=== PATIENT | female | born 1990 | race Caucasian/White ===

== ENCOUNTER 2017-07-15 01:19 | Emergency (ER) | payer OTHER, SELFPAY ==
[2017-07-15 01:21] VITALS: BP 128/85; PULSE 83; RESP 18; O2SAT 98; BMI 34.9
[2017-07-15 01:25] VITALS: TEMP 36.8
--- NOTE | 2017-07-15 01:51 | ED.DCSUM_ITS ---
- ER Visit Summary Date of Service: 07/15/17 Chief Complaint: Dizziness History of Present Illness: The patient is a 26 F who presents with complaint of dizziness since yesterday morning. Patient describes it as being unable to keep herself upright. It is worse if she moves, such as standing or laying down. It is not fatigable if she lays still. If she still, she states her abdomen starts to hurt. She has had a similar episode in the past and was found to be . Patient denies fever, chest pain, dyspnea, urinary symptoms, vomiting or diarrhea. She has been nauseated all day. Denies any medical history. Patient uses tobacco and alcohol. Physical Examination: Vital signs: afebrile, hemodynamically stable, no hypoxia on room air General: well nourished, well developed, in no distress Skin: warm, dry, no rash, no pallor HEENT: normocephalic and atraumatic; PERRL, EOMI, mild horizontal nystagmus bilaterally with lateral gaze, moist mucous membranes Cardiovascular: regular rate and rhythm without murmurs, no peripheral edema, 2 + pulses all distal extremities Respiratory: No increased work of breathing, lungs are clear to auscultation bilaterally, no rales, rhonchi or wheezing Abdominal: Abdomen is soft, mildly tender with normoactive bowel sounds, no guarding or rebound, no masses MSK: Moves all extremities, no deformities, normal strength Neuro: Awake and alert, oriented ?4. No facial droop, sensation and motor function intact and symmetric Test Results: Abnormal Lab Results 07/15/17 07/15/17 07/15/17 02:10 02:10 02:10 WBC 10.3 RBC 4.79 Hgb 14.7 Hct 43.3 MCV 90.4 MCH 30.7 MCHC 33.9 RDW 13.0 RDW Differential 43.5 Plt Count 237 MPV 9.8 Immature Gran % (Auto) 0.200 Neut % (Auto) 80.4 H Lymph % (Auto) 9.0 L [place]unn[place] % (Auto) 8.6 Eos % (Auto) 1.7 Baso % (Auto) 0.1 Absolute Neuts (auto) 8.3 H Absolute Lymphs (auto) 0.93 Total Counted Not Reportable Sodium 138 Potassium 3.7 Chloride 106 Carbon Dioxide 27.0 Anion Gap 5 BUN 6 L Creatinine 0.78 Estim Creat Clear Calc 81.03 Est GFR (MDRD) Af Amer 112 Est GFR (MDRD) Non-Af 93 BUN/Creatinine Ratio 7.7 L Glucose 95 Calcium 8.2 L Total Bilirubin 0.40 AST 12 L ALT 25 Alkaline Phosphatase 89 Total Protein 7.3 Albumin 3.6 Globulin 3.7 Albumin/Globulin Ratio 1.0 Lipase 169 Serum , Qual Urine Color Urine Clarity Urine pH Ur Specific [place] Urine Protein Urine Glucose (UA) Urine Ketones Urine Occult Blood Urine Nitrite Urine Bilirubin Urine Urobilinogen Ur Leukocyte Esterase Urine RBC Urine WBC Ur Squamous Epith Cells Urine Bacteria Urine Mucus Urine Opiates Screen Urine Methadone Screen Ur Barbiturates Screen Ur Phencyclidine Scrn Ur Amphetamines Screen U Methamphetamin-MDMA U Benzodiazepines Scrn Urine Cocaine Screen U Cannabinoids Screen Ur Drug Screen Comment Ethyl Alcohol 6.0 07/15/17 07/15/17 07/15/17 02:10 02:52 02:52 WBC RBC Hgb Hct MCV MCH MCHC RDW RDW Differential Plt Count MPV Immature Gran % (Auto) Neut % (Auto) Lymph % (Auto) Runn[place] % (Auto) Eos % (Auto) Baso % (Auto) Absolute Neuts (auto) Absolute Lymphs (auto) Total Counted Sodium Potassium Chloride Carbon Dioxide Anion Gap BUN Creatinine Estim Creat Clear Calc Est GFR (MDRD) Af Amer Est GFR (MDRD) Non-Af BUN/Creatinine Ratio Glucose Calcium Total Bilirubin AST ALT Alkaline Phosphatase Total Protein Albumin Globulin Albumin/Globulin Ratio Lipase Serum , Qual NEGATIVE Urine Color Yellow Urine Clarity Clear Urine pH 6.5 Ur Specific [place] 1.010 Urine Protein Negative Urine Glucose (UA) Normal Urine Ketones Negative Urine Occult Blood 10 H Urine Nitrite Negative Urine Bilirubin Negative Urine Urobilinogen Normal Ur Leukocyte Esterase 25 H Urine RBC 0 SEEN Urine WBC 0-5 SEEN Ur Squamous Epith Cells 10-25 SEEN Urine Bacteria 0 SEEN Urine Mucus 0 SEEN Urine Opiates Screen NEGATIVE Urine Methadone Screen NEGATIVE Ur Barbiturates Screen NEGATIVE Ur Phencyclidine Scrn NEGATIVE Ur Amphetamines Screen NEGATIVE U Methamphetamin-MDMA NEGATIVE U Benzodiazepines Scrn NEGATIVE Urine Cocaine Screen NEGATIVE U Cannabinoids Screen NEGATIVE Ur Drug Screen Comment Ethyl Alcohol Emergency Department Course and Treatment: Patient was given IV hydration and Zofran for symptomatic relief. negative. Lab work unremarkable for contributing factors to patient's dizziness. Alcohol and urine tox were negative. Gigi maneuver was performed on the patient and she had great improvement in her vertigo afterwards. This makes patients symptoms most consistent with peripheral vertigo. Patient was given a prescription for meclizine in case of recurrence of the dizziness. Patient was discharged home in greatly improved condition. Treatment Plan: [] Disposition: [] Impression: Peripheral vertigo This note was generated with [employer] dictation software. It may contain incorrect words, spelling, and punctuation that were not noted in review of the chart prior to signing ED Disposition - Plan for ED Patient: Disposition: Home or Assisted Living Chief Complaint: Dizziness Instructions: ED BPV Vertigo, ED Vertigo Unspecified Prescriptions: Meclizine HCl 25 mg PO TID PRN PRN #20 tab PRN Reason: Dizziness Referrals: Silvio Isaacs MD [STAFF PHYSICIAN] - 3-5 Days if not improving Care Physician,No Primary [Primary Care Provider] - Additional Instructions: Please use the meclizine as needed for dizziness and nausea. Follow up with primary care doctor of your choice or the doctor on this paperwork if you continue to have issues with dizziness and vertigo. If you are having dizziness , do not drive a vehicle or do anything else that would put you or others in danger. If you have any worsening of your condition or any new concerning symptoms, please return immediately to the emergency department for another evaluation.
[2017-07-15] MEDS: 0.9% Normal Saline 1,000 ML 1000 ML IV (02:09)
[2017-07-15] MEDS: Ondansetron 4 MG/2 ML Vial IV (02:09)
[2017-07-15 02:17] LABS: Absolute Lymphocyte Count 0.93 X10^3/ul (0.83-4.51); Absolute Neutrophil Count 8.3 X10^3/uL (2.0-7.7); Basophil# 0.01 X10^3/uL; Basophil% 0.1 % (0-1); Eosinophil# 0.18 X10^3/uL; Eosinophils% 1.7 % (0-5); Hematocrit 43.3 % (37-47); Hemoglobin 14.7 g/dl (12.0-15.0); Lymphocyte # 0.93 X10^3/ul (4.0); Mean Corp Hgb Conc 33.9 g/gl (32-36); Mean Corpuscular Hgb 30.7 pg (27.0-32.0); Mean Corpuscular Volume 90.4 fL (81-99); Mean Platelet Vol. 9.8 fl (6.2-12.0); Monocyte# 0.89 X10^3/uL; Monocyte% 8.6 % (0-10); Neutrophil # 8.28 X10^3/uL (2.7-7.7); Neutrophil % 80.4 % (47-70); Platelet Count 237 K/mm3 (150-450); RBC Distribution Width SD 43.5 fl (35.1-43.9); Red Blood Count 4.79 M/mm3 (4.2-5.4); White Blood Count 10.3 K/mm3 (4.4-11.0)
[2017-07-15 02:19] LABS: POSITIVE COUNT NO; POSITIVE DIFFERENTIAL NO; POSITIVE MORPHOLOGY NO
[2017-07-15 02:32] LABS: AST(SGOT) 12 U/L (15-37); Alanine Aminotransfer ALT/SGPT 25 U/L (13-56); Albumin, Serum 3.6 g/dL (3.2-5.0); Alkaline Phosphatase 89 U/L (45-117); Anion Gap 5 (5-15); BUN 6 mg/dL (7-18); BUN/Creat Ratio 7.7 RATIO (10-20); Calcium,Total 8.2 mg/dL (8.5-10.1); Chloride 106 mmol/L (98-107); Creatinine, Serum 0.78 mg/dL (0.55-1.02); EST Glomerular Filtration Rate 93 mL/min (>60); Est Glom Filt Rate - Afr Amer 112 mL/min (>60); Estimated Creatinine Clearance 81.03 ml/min; Globulin 3.7 g/dL (2.2-4.2); Glucose 95 mg/dL (74-106); Lipase 169 U/L (73-393); Potassium 3.7 mmol/L (3.5-5.1); Protein, Total 7.3 g/dL (6.4-8.2); Sodium Level 138 mmol/L (136-145)
[2017-07-15 02:57] LABS: Bacteria 0 SEEN /hpf (None Seen); Mucous, Urine 0 SEEN /hpf (<or=2+); Red Blood Cells-Urine 0 SEEN /hpf (0-5)
[2017-07-15 02:59] LABS: Color, Urine Yellow (Yellow); Glucose, Dipstick Normal (Normal); Ketone-Dipstick Negative (Negative); Leukocyte Esterase-Dipstick 25 /ul (Negative); Nitrite-Dipstick Negative (Negative); Occult Blood-Urine 10 /ul (Negative); Protein-Dipstick Negative (Negative); Urine Bilirubin Dipstick Negative (Negative); Urine Clarity Clear (Clear); Urine Urobilinogen Normal (Normal); Urine pH 6.5 (5.0 - 8.0)
[2017-07-15 02:59] LABS: Pregnancy, Serum, hCG Quali. NEGATIVE Negative (0-9 Nonpreg)
[2017-07-15 03:00] LABS: Vista UDS pH Range 6
[2017-07-15 03:06] LABS: Squamous Epithelial Cells - UA 10-25 SEEN /hpf (5-10); White Blood Cells 0-5 SEEN /hpf (0-5)
[2017-07-15 03:11] LABS: Amphetamine Urine VISTA NEGATIVE (<1000 ng/mL); Barbiturate Urine VISTA NEGATIVE (< 200 ng/mL); Benzodiazepine Urine VISTA NEGATIVE (< 200 ng/mL); Cocaine Urine VISTA NEGATIVE (< 300 ng/mL); Ecstacy Urine VISTA NEGATIVE (< 500 ng/mL); Methadone Urine VISTA NEGATIVE (< 300 ng/mL); PCP Urine VISTA NEGATIVE (< 25 ng/mL); THC Urine VISTA NEGATIVE (< 50 ng/mL)
[2017-07-15 03:27] VITALS: BP 109/68; PULSE 68; RESP 20; O2SAT 99
--- NOTE | 2017-07-15 03:47 | DCINST.ED_ITS ---
ED Disposition - Plan for ED Patient: Disposition: Home or Assisted Living Chief Complaint: Dizziness Instructions: ED Vertigo Unspecified, ED BPV Vertigo Prescriptions: Meclizine HCl 25 mg PO TID PRN PRN #20 tab PRN Reason: Dizziness Referrals: Care Physician,No Primary [Primary Care Provider] - Silvio Isaacs MD [STAFF PHYSICIAN] - 3-5 Days if not improving Additional Instructions: Please use the meclizine as needed for dizziness and nausea. Follow up with primary care doctor of your choice or the doctor on this paperwork if you continue to have issues with dizziness and vertigo. If you are having dizziness , do not drive a vehicle or do anything else that would put you or others in danger. If you have any worsening of your condition or any new concerning symptoms, please return immediately to the emergency department for another evaluation.
[2017-07-15] MEDS: Meclizine HCl 25 MG Tablet PO (03:55)
[2017-07-15 03:57] VITALS: BP 124/86; PULSE 62; RESP 18; O2SAT 99
== END 2017-07-15 03:58 | disposition home or self-care (01) ==
PROVIDERS: Emergency Provider Emergency Medicine
DX: H81.399 Other peripheral vertigo, unspecified ear (principal); Z72.0 Tobacco use
CPT/HCPCS: 80053; 80307; 80320; 81001; 83690; 84703; 85025; 96361; 96374; 99284; J7030; G0480; J2405

== ENCOUNTER 2017-08-05 04:53 | Emergency (ER) | payer OTHER, SELFPAY ==
[2017-08-05 04:54] VITALS: BP 132/86; PULSE 83; RESP 16; TEMP 36.7; O2SAT 97; BMI 36.8
--- NOTE | 2017-08-05 05:24 | ED.DCSUM_ITS ---
- ER Visit Summary Date of Service: 08/05/17 Chief Complaint: [Dental pain and facial swelling] History of Present Illness: The patient is a 26 F [presents the emergency department with dental pain and facial swelling. She had her wisdom teeth all extracted on 5 days ago. She was doing well Thursday and Thursday but Thursday started having swelling and pain. She saw her dentist and was started on clindamycin Thursday. She states that it is getting more hard and she thinks it is going down her neck. No fevers or chills. No foul taste in her mouth. Swelling is only on along her right jaw] patient is taking Motrin Percocet and clindamycin. Physical Examination: [] Blood pressure 132/86 heart rate 83 respiratory rate 16 pulse ox 97% temperature 98.1 WN WD NAD PERRL EOMI MMM Patient has facial swelling at the angle of the right jawline that extends mildly into the neck. She has mild trismus. She is tolerating secretions and there is no sublingual edema. There is hyperemia involving the extraction site on the right mandibular wisdom tooth. There is some mild fluctuance with expression of a small amount of purulence NECK supple and nontender, no masses RRR no murmur rub or gallop, no peripheral edema, symmetric radial pulses CTAB no respiratory distress ABDOMEN is soft and nontender, normal bowel sounds, no distension, no rebound or guarding SKIN is warm and dry no rashes Alert and Oriented x3, CN II-XII in tact, no motor or sensory deficits, gait normal No lymphadenopathy Test Results: [] Emergency Department Course and Treatment: [Patient was given IV clindamycin and Flagyl. She was given Flagyl to take with her clindamycin at home. She was given precautions for which to return and advised to see her oral surgeon in 2 days.] Treatment Plan: [] Disposition: Discharge [] Impression: [Dental infection] This note was generated with [employer] dictation software. It may contain incorrect words, spelling, and punctuation that were not noted in review of the chart prior to signing ED Disposition - Plan for ED Patient: Chief Complaint: Dental Referrals: Care Physician,No Primary [Primary Care Provider] -
--- NOTE | 2017-08-05 05:24 | ED.DEP ---
ED Disposition - Plan for ED Patient: Chief Complaint: Dental Instructions: Dental Abscess Prescriptions: Metronidazole [Flagyl] 500 mg PO Q8H 7 Days tablet Referrals: [facility] [Other] - 2 Days for wound check
[2017-08-05] MEDS: metroNIDAZOLE 500 MG Tablet PO (05:26)
[2017-08-05] MEDS: Clindamycin 900 MG/50 ML BAG 75 MG IV (05:30)
[2017-08-05 07:11] VITALS: BP 97/58; PULSE 71; RESP 14; O2SAT 99
== END 2017-08-05 07:12 | disposition home or self-care (01) ==
PROVIDERS: Emergency Provider Emergency Medicine
DX: K04.7 Periapical abscess without sinus (principal); Z72.0 Tobacco use
CPT/HCPCS: 99284; J7050; A4216

== ENCOUNTER 2017-08-18 06:49 | Emergency (ER) | payer OTHER, SELFPAY ==
[2017-08-18 06:50] VITALS: BP 124/79; PULSE 73; RESP 16; TEMP 36.7; O2SAT 99; BMI 35.8
[2017-08-18] MEDS: Ketorolac 30 MG/ML Syringe IV (07:23)
--- NOTE | 2017-08-18 07:36 | ED.VISSUMM ---
- ER Visit Summary Date of Service: 08/18/17 Chief Complaint: Right flank pain History of Present Illness: The patient is a 26 F who states that 2 days ago she began to have dysuria and urinary frequency. She states that when she goes she only urinates a small amount but feels that she needs to urinate immediately afterwards. Now she notes nausea and a right flank pain. She denies any fevers. No rashes. No diarrhea. She states she cannot find a position of comfort. Physical Examination: Afebrile vital signs are stable Gen: Well-nourished well-developed Head: Normocephalic atraumatic Eyes: Perrl EOMI ENT: TMs clear no rhinorrhea moist mucous membranes Neck: Supple no lymphadenopathy no JVD nontender CVS: Regular rate rhythm no murmurs normal S1-S2 Respiratory: No distress clear to auscultation bilaterally chest nontender Abdomen: Soft nontender nondistended normal bowel sounds no masses Back: Right CVA tenderness Extremity: Nontender no edema Skin: Normal color no rash Neuro: alert orientated ?3 CN II-XII intact normal strength sensation reflexes gait cerebellar Psych: Normal affect normal mood Test Results: Urine test was negative. Urinalysis demonstrates 50-100 white blood cells. 1+ bacteria 5-10 epithelial cells as of leukocyte esterase negative nitrates. Emergency Department Course and Treatment: Patient received a dose of IV Toradol. Patient will be placed on ciprofloxacin as well as some Phenergan for nausea patient will orally hydrate. Return if worsening or concerns. Impression: 1. Acute pyelonephritis This note was generated with [employer] dictation software. It may contain incorrect words, spelling, and punctuation that were not noted in review of the chart prior to signing ED Disposition - Plan for ED Patient: Disposition: Home or Assisted Living Chief Complaint: Flank Pain Instructions: ED Kidney Infec Female Prescriptions: proMETHazine tablet [Phenergan] 25 mg PO Q6H PRN PRN #10 tab PRN Reason: Nausea Ciprofloxacin [Cipro] 500 mg PO BID #14 tab Referrals: Karie Washington MD [STAFF PHYSICIAN] - 3-5 Days if not improving
--- NOTE | 2017-08-18 07:39 | ED.DCSUM_ITS ---
- ER Visit Summary Date of Service: 08/18/17 Chief Complaint: Right flank pain History of Present Illness: The patient is a 26 F who states that 2 days ago she began to have dysuria and urinary frequency. She states that when she goes she only urinates a small amount but feels that she needs to urinate immediately afterwards. Now she notes nausea and a right flank pain. She denies any fevers. No rashes. No diarrhea. She states she cannot find a position of comfort. Physical Examination: Afebrile vital signs are stable Gen: Well-nourished well-developed Head: Normocephalic atraumatic Eyes: Perrl EOMI ENT: TMs clear no rhinorrhea moist mucous membranes Neck: Supple no lymphadenopathy no JVD nontender CVS: Regular rate rhythm no murmurs normal S1-S2 Respiratory: No distress clear to auscultation bilaterally chest nontender Abdomen: Soft nontender nondistended normal bowel sounds no masses Back: Right CVA tenderness Extremity: Nontender no edema Skin: Normal color no rash Neuro: alert orientated ?3 CN II-XII intact normal strength sensation reflexes gait cerebellar Psych: Normal affect normal mood Test Results: Urine test was negative. Urinalysis demonstrates 50- 100 white blood cells. 1+ bacteria 5-10 epithelial cells as of leukocyte esterase negative nitrates. Emergency Department Course and Treatment: Patient received a dose of IV Toradol. Patient will be placed on ciprofloxacin as well as some Phenergan for nausea patient will orally hydrate. Return if worsening or concerns. Impression: 1. Acute pyelonephritis This note was generated with [employer] dictation software. It may contain incorrect words, spelling, and punctuation that were not noted in review of the chart prior to signing ED Disposition - Plan for ED Patient: Disposition: Home or Assisted Living Chief Complaint: Flank Pain Instructions: ED Kidney Infec Female Prescriptions: proMETHazine tablet [Phenergan] 25 mg PO Q6H PRN PRN #10 tab PRN Reason: Nausea Ciprofloxacin [Cipro] 500 mg PO BID #14 tab Referrals: Karie Washington MD [STAFF PHYSICIAN] - 3-5 Days if not improving
--- NOTE | 2017-08-18 07:58 | ED.RN ---
pt given multiple glasses of water to drink. pt sitting in the bed playing games on her phone with no distress noted. pt is aware that a urine sample is needed.
[2017-08-18 09:03] VITALS: BP 127/68; PULSE 59; RESP 16; O2SAT 98
[2017-08-18 09:05] LABS: Mucous, Urine 0 SEEN /hpf (<or=2+)
[2017-08-18 09:10] LABS: Color, Urine Yellow (Yellow); Glucose, Dipstick Normal (Normal); Ketone-Dipstick Negative (Negative); Leukocyte Esterase-Dipstick 500 /ul (Negative); Nitrite-Dipstick Negative (Negative); Occult Blood-Urine 50 /ul (Negative); Protein-Dipstick 30 mg/dl (Negative); Specific Gravity, Urine 1.015 (1.002-1.030); Urine Bilirubin Dipstick Negative (Negative); Urine Clarity Sl. Cloudy (Clear); Urine Urobilinogen Normal (Normal)
[2017-08-18 09:12] LABS: Internal QC Validated? YES +Cl - CLEAR BKGD; Pregnancy, Urine Negative Negative
[2017-08-18 09:18] LABS: Bacteria 1+ /hpf (None Seen); Red Blood Cells-Urine 0-5 SEEN /hpf (0-5); Squamous Epithelial Cells - UA 5-10 SEEN /hpf (5-10); White Blood Cells 50-100 SEEN /hpf (0-5)
[2017-08-18 09:50] VITALS: BP 131/59; PULSE 72; RESP 16; O2SAT 97
== END 2017-08-18 09:51 | disposition home or self-care (01) ==
PROVIDERS: Emergency Provider Emergency Medicine
DX: N10 Acute pyelonephritis (principal); Z72.0 Tobacco use
CPT/HCPCS: 81001; 81025; 96374; 99283; A4216

== ENCOUNTER 2017-12-13 19:22 | Emergency (ER) | payer OTHER, SELFPAY ==
[2017-12-13 19:23] VITALS: BP 125/74; PULSE 72; RESP 15; TEMP 36.6; O2SAT 97; BMI 34.9
--- NOTE | 2017-12-13 19:53 | ED.DCSUM_ITS ---
- ER Visit Summary Date of Service: 12/13/17 Chief Complaint: Right armpit pain and swelling History of Present Illness: The patient is a 27 F who presents for 4 days of gradually worsening right armpit swelling and pain. Patient states she has had a tender lump developing there that is much worse today. She has had a prior abscess there that had to be drained. She denies any fever, red streaking or any associated symptoms. She complains of 1 month of left kidney pain and urinary frequency/urgency on review of systems. Patient denies any other complaints at this time. Denies . Physical Examination: Vital signs: afebrile, hemodynamically stable, no hypoxia on room air General: well nourished, well developed, in no distress Skin: warm, dry, no rash, no pallor, tender fluctuant erythematous ovoid mass in the anterior axillary region, involving the soft tissue. Tender to palpation. No lymphangitis HEENT: normocephalic and atraumatic; PERRL, EOMI, moist mucous membranes Cardiovascular: regular rate and rhythm without murmurs, no peripheral edema, 2 + pulses all distal extremities Respiratory: No increased work of breathing, lungs are clear to auscultation bilaterally, no rales, rhonchi or wheezing Abdominal: Abdomen is soft, nontender with normoactive bowel sounds, no guarding or rebound, no masses MSK: Moves all extremities, no deformities, normal strength Neuro: Awake and alert, oriented ?4. No facial droop, sensation and motor function intact and symmetric Test Results: Abnormal Lab Results 12/13/17 12/13/17 20:11 20:11 Urine Color Yellow Urine Clarity Clear Urine pH 6.0 Ur Specific [place] 1.020 Urine Protein 15 H Urine Glucose (UA) Normal Urine Ketones Negative Urine Occult Blood 25 H Urine Nitrite Negative Urine Bilirubin Negative Urine Urobilinogen Normal Ur Leukocyte Esterase 100 H Urine RBC 0 SEEN Urine WBC 10-25 SEEN Ur Squamous Epith Cells 0-5 SEEN Urine Bacteria 2+ Urine Mucus 0 SEEN Urine Test Negative Medications Given Discontinued Medications Lidocaine HCl (Lidocaine Hcl 1% Mdv) 0 ml INFILT X1 ONE Stop: 12/13/17 19:52 Last Admin: 12/14/17 00:48 Dose: 3 ml Trimethoprim/Sulfamethoxazole (Bactrim Ds) 1 tablet PO X1 ONE Stop: 12/14/17 00:40 Last Admin: 12/14/17 00:49 Dose: 1 tablet Emergency Department Course and Treatment: Patient presents for evaluation and management of an abscess in her right axilla. She also while she is here wanted evaluation for 1 month of urinary symptoms. Urinalysis was positive for UTI. Patient is very well-appearing and afebrile, with no concerning findings on examination for pyelonephritis. Patient does have an abscess on the right axilla that required incision and drainage. At the time I was all set up to begin the incision and drainage, patient suddenly jumped out of bed and stated she had to go to the bathroom. Patient was requested to stay in the bed so that the procedure could be completed, but she insisted that she had to go to the bathroom. Thus I told her I would have to come back later to do the procedure. Once patient was back in the bed, patient consented to the procedure. The area was cleansed with Betadine. The abscess began spontaneously draining at a pustule in the center of it. Thus 1 cc of lidocaine was used to locally anesthetize this region of the overlying skin to the abscess. The draining pustule was extended to 1 cm with an 11 blade. Large amount of pus was expressed from the abscess cavity. Loculations were broken up with curved hemostats. Packing was not placed. Patient felt much better instantly after the abscess was decompressed. She was placed on Bactrim for coverage of her urinary tract infection and her abscess. Patient is allergic to penicillin, with history of anaphylaxis. Thus Keflex was not added. Also given the small size of the abscess and successful drainage, antibiotics are not even necessarily indicated for treatment of this abscess. Return precautions given. Patient discharged home very well- appearing. Treatment Plan: [] Disposition: [] Impression: Right axillary abscess, acute cystitis This note was generated with [employer] dictation software. It may contain incorrect words, spelling, and punctuation that were not noted in review of the chart prior to signing ED Disposition - Plan for ED Patient: Disposition: Home or Assisted Living Chief Complaint: Abscess Instructions: ED Abscess IandD, ED UTI Cystitis Female Prescriptions: Smz/Tmp Ds [Bactrim Ds] 1 tab PO BID #14 tab Referrals: Angelo Figueroa MD [STAFF PHYSICIAN] - 3-5 Days if not improving Care Physician,No Primary [Primary Care Provider] - Additional Instructions: Take your antibiotic prescription for the full 7 days as prescribed, even if you feel better before it is done. Use [id number] pain medication as needed. If you have any worsening of your condition or any new concerning symptoms, please return immediately to the emergency department for another evaluation.
[2017-12-13 20:23] LABS: Mucous, Urine 0 SEEN /hpf (<or=2+); Red Blood Cells-Urine 0 SEEN /hpf (0-5)
[2017-12-13 20:25] LABS: Color, Urine Yellow (Yellow); Glucose, Dipstick Normal (Normal); Ketone-Dipstick Negative (Negative); Leukocyte Esterase-Dipstick 100 /ul (Negative); Nitrite-Dipstick Negative (Negative); Occult Blood-Urine 25 /ul (Negative); Protein-Dipstick 15 mg/dl (Negative); Urine Bilirubin Dipstick Negative (Negative); Urine Clarity Clear (Clear); Urine Urobilinogen Normal (Normal)
[2017-12-13 20:28] LABS: Internal QC Validated? YES +Cl - CLEAR BKGD; Pregnancy, Urine Negative Negative
[2017-12-13 20:31] LABS: Bacteria 2+ /hpf (None Seen); White Blood Cells 10-25 SEEN /hpf (0-5)
[2017-12-13 20:32] LABS: Squamous Epithelial Cells - UA 0-5 SEEN /hpf (5-10)
[2017-12-14 00:15] VITALS: RESP 13
--- NOTE | 2017-12-14 00:40 | ED.DEP ---
ED Disposition - Plan for ED Patient: Disposition: Home or Assisted Living Chief Complaint: Abscess Instructions: ED Abscess IandD, ED UTI Cystitis Female Prescriptions: Smz/Tmp Ds [Bactrim Ds] 1 tab PO BID #14 tab Referrals: Care Physician,No Primary [Primary Care Provider] - Angelo Figueroa MD [STAFF PHYSICIAN] - 3-5 Days if not improving Additional Instructions: Take your antibiotic prescription for the full 7 days as prescribed, even if you feel better before it is done. Use [id number] pain medication as needed. If you have any worsening of your condition or any new concerning symptoms, please return immediately to the emergency department for another evaluation.
[2017-12-14 00:49] VITALS: BP 119/74; PULSE 64; RESP 14; O2SAT 98
[2017-12-14] MEDS: Smz/Tmp Ds Tablet 1 TABLET PO (00:49)
== END 2017-12-14 00:57 | disposition home or self-care (01) ==
PROVIDERS: Emergency Provider Emergency Medicine
DX: L02.411 Cutaneous abscess of right axilla (principal); N30.00 Acute cystitis without hematuria; B96.89 Other specified bacterial agents as the cause of diseases classified elsewhere
CPT/HCPCS: 10060; 81001; 81025; 87077; 87086; 87088; 87186; 99283